=== PATIENT | female | born 1990 | race American Indian/Alaskan Native ===

== ENCOUNTER 2018-11-10 23:52 | Emergency (ER) | payer MEDICAID ==
[2018-11-11 00:18] LABS: Basophils # (Auto) 0.1 K/mm3 (0.0-0.1); Basophils % (Auto) 0.8 % (0.0-1.8); Eosinophils # (Auto) 0.2 K/mm3 (0.0-0.4); Eosinophils % (Auto) 2.7 % (0.0-4.3); Hematocrit 36.7 % (30.3-42.9); Hemoglobin 12.7 gm/dl (10.1-14.3); Lymphocytes # (Auto) 1.8 K/mm3 (1.2-5.4); Mean Corpuscular HGB Conc 35 % (30-34); Mean Corpuscular Volume 93 fl (79-97); Monocytes # (Auto) 0.9 K/mm3 (0.0-0.8); Monocytes % (Auto) 11.9 % (0.0-7.3); Platelet Count 229 K/mm3 (140-440); Red Blood Count 3.95 M/mm3 (3.65-5.03); Red Cell Distribution Width 14.3 % (13.2-15.2)
[2018-11-11 00:43] LABS: Albumin 3.9 g/dL (3.9-5); BUN/Creatinine Ratio 25; Blood Urea Nitrogen 10 mg/dL (7-17); Calcium 8.6 mg/dL (8.4-10.2); Hemolysis Index 120
[2018-11-11 01:32] LABS: Alanine Aminotransferase 15 units/L (7-56)
[2018-11-11 02:27] LABS: Bilirubin,Urine NEG (Negative); Blood,Urine SM (Negative); Color,Urine Yellow (Yellow); Mucus,Urine FEW /HPF; Protein,Urine <15 mg/dL mg/dL (Negative); Urobilinogen,Urine < 2.0 mg/dL (<2.0)
--- NOTE | 2018-11-11 02:31 | Emergency Department Report ---
ED Abdominal Pain HPI - General Chief Complaint: Abdominal Pain Stated Complaint: LOWER ABD PAIN Time Seen by Provider: 11/11/18 01:55 Source: patient Mode of arrival: Ambulatory Limitations: No Limitations - History of Present Illness Initial Comments: Patient is a 28-year-old female presents with suprapubic abdominal cramping that began a few hours ago. She is currently 12 weeks . She denies any nausea, vomiting, diarrhea, fever, urinary symptoms, vaginal bleeding, vaginal discharge. States her last menstrual cycle was August 18. Her COREM[facility] is at [facility] [place] [facility]. The patient states her first . she denies any past medical history or allergies to medications. - Related Data Home Medications Medication Instructions Recorded Confirmed Last Taken No Known Home Medications [No 10/11/15 10/11/15 Unknown Reported Home Medications] Allergies Allergy/AdvReac Type Severity Reaction Status Date / Time No Known Allergies Allergy Verified 11/10/18 23:58 ED Review of Systems ROS: Stated complaint: LOWER ABD PAIN Other details as noted in HPI Comment: All other systems reviewed and negative ED Past Medical Hx - Past Medical History Previous Medical History?: No - Surgical History Past Surgical History?: No - Social History Smoking Status: Never Smoker Substance Use Type: None - Medications Home Medications: Home Medications Medication Instructions Recorded Confirmed Last Taken Type No Known Home Medications [No 10/11/15 10/11/15 Unknown History Reported Home Medications] ED Physical Exam - General Limitations: No Limitations General appearance: alert, in no apparent distress - Head Head exam: Present: atraumatic, normocephalic - Eye Eye exam: Present: normal appearance - ENT ENT exam: Present: mucous membranes moist - Respiratory Respiratory exam: Present: normal lung sounds bilaterally. Absent: respiratory distress, wheezes, rales, rhonchi, stridor, accessory muscle use, decreased breath sounds, prolonged expiratory - Cardiovascular Cardiovascular Exam: Present: regular rate, normal rhythm, normal heart sounds. Absent: systolic murmur, diastolic murmur, rubs, gallop - GI/Abdominal GI/Abdominal exam: Present: soft, normal bowel sounds. Absent: distended, tenderness, guarding, rebound, rigid - Back Exam Back exam: Absent: CVA tenderness (R), CVA tenderness (L) - Neurological Exam Neurological exam: Present: alert, oriented X3 - Psychiatric Psychiatric exam: Present: normal affect, normal mood - Skin Skin exam: Present: warm, dry, intact ED Course Vital Signs 11/10/18 11/11/18 23:56 03:39 Temperature 98.3 F 98.4 F Pulse Rate 124 H 76 Respiratory 22 20 Rate Blood Pressure 129/80 Blood Pressure 105/60 [Left] O2 Sat by Pulse 97 100 Oximetry ED Medical Decision Making - Lab Data Result diagrams: 11/11/18 00:05 11/11/18 00:05 Lab Results 11/11/18 11/11/18 11/11/18 Range/Units 00:05 00:05 00:05 WBC 7.6 (4.5-11.0) K/mm3 RBC 3.95 (3.65-5.03) M/mm3 Hgb 12.7 (10.1-14.3) gm/dl Hct 36.7 (30.3-42.9) % MCV 93 (79-97) fl MCH 32 (28-32) pg MCHC 35 H (30-34) % RDW 14.3 (13.2-15.2) % Plt Count 229 (140-440) K/mm3 Lymph % (Auto) 24.0 (13.4-35.0) % Jenkins % (Auto) 11.9 H (0.0-7.3) % Eos % (Auto) 2.7 (0.0-4.3) % Baso % (Auto) 0.8 (0.0-1.8) % Lymph # 1.8 (1.2-5.4) K/mm3 Jenkins # 0.9 H (0.0-0.8) K/mm3 Eos # 0.2 (0.0-0.4) K/mm3 Baso # 0.1 (0.0-0.1) K/mm3 Seg Neutrophils % 60.6 (40.0-70.0) % Seg Neutrophils # 4.6 (1.8-7.7) K/mm3 Sodium 136 L (137-145) mmol/L Potassium 4.0 (3.6-5.0) mmol/L Chloride 104.7 (98-107) mmol/L Carbon Dioxide 19 L (22-30) mmol/L Anion Gap 16 mmol/L BUN 10 (7-17) mg/dL Creatinine 0.4 L (0.7-1.2) mg/dL Estimated GFR > 60 ml/min BUN/Creatinine Ratio 25 % Glucose 113 H (65-100) mg/dL Calcium 8.6 (8.4-10.2) mg/dL Total Bilirubin 0.30 (0.1-1.2) mg/dL AST 29 (5-40) units/L ALT 15 (7-56) units/L Alkaline Phosphatase 62 (35-129) units/L Total Protein 7.5 (6.3-8.2) g/dL Albumin 3.9 (3.9-5) g/dL Albumin/Globulin Ratio 1.1 % HCG, Quant 76990 H (0-4) mIU/mL Urine Color (Yellow) Urine Turbidity (Clear) Urine pH (5.0-7.0) Ur Specific Elkins (1.003-1.030) Urine Protein (Negative) mg/dL Urine Glucose (UA) (Negative) mg/dL Urine Ketones (Negative) mg/dL Urine Blood (Negative) Urine Nitrite (Negative) Urine Bilirubin (Negative) Urine Urobilinogen (<2.0) mg/dL Ur Leukocyte Esterase (Negative) Urine WBC (Auto) (0.0-6.0) /HPF Urine RBC (Auto) (0.0-6.0) /HPF U Epithel Cells (Auto) (0-13.0) /HPF Urine Mucus /HPF 11/11/18 Range/Units 02:10 WBC (4.5-11.0) K/mm3 RBC (3.65-5.03) M/mm3 Hgb (10.1-14.3) gm/dl Hct (30.3-42.9) % MCV (79-97) fl MCH (28-32) pg MCHC (30-34) % RDW (13.2-15.2) % Plt Count (140-440) K/mm3 Lymph % (Auto) (13.4-35.0) % Jenkins % (Auto) (0.0-7.3) % Eos % (Auto) (0.0-4.3) % Baso % (Auto) (0.0-1.8) % Lymph # (1.2-5.4) K/mm3 Jenkins # (0.0-0.8) K/mm3 Eos # (0.0-0.4) K/mm3 Baso # (0.0-0.1) K/mm3 Seg Neutrophils % (40.0-70.0) % Seg Neutrophils # (1.8-7.7) K/mm3 Sodium (137-145) mmol/L Potassium (3.6-5.0) mmol/L Chloride (98-107) mmol/L Carbon Dioxide (22-30) mmol/L Anion Gap mmol/L BUN (7-17) mg/dL Creatinine (0.7-1.2) mg/dL Estimated GFR ml/min BUN/Creatinine Ratio % Glucose (65-100) mg/dL Calcium (8.4-10.2) mg/dL Total Bilirubin (0.1-1.2) mg/dL AST (5-40) units/L ALT (7-56) units/L Alkaline Phosphatase (35-129) units/L Total Protein (6.3-8.2) g/dL Albumin (3.9-5) g/dL Albumin/Globulin Ratio % HCG, Quant (0-4) mIU/mL Urine Color Yellow (Yellow) Urine Turbidity Clear (Clear) Urine pH 6.0 (5.0-7.0) Ur Specific Elkins 1.017 (1.003-1.030) Urine Protein <15 mg/dl (Negative) mg/dL Urine Glucose (UA) 50 (Negative) mg/dL Urine Ketones Neg (Negative) mg/dL Urine Blood Sm (Negative) Urine Nitrite Neg (Negative) Urine Bilirubin Neg (Negative) Urine Urobilinogen < 2.0 (<2.0) mg/dL Ur Leukocyte Esterase Neg (Negative) Urine WBC (Auto) 1.0 (0.0-6.0) /HPF Urine RBC (Auto) 3.0 (0.0-6.0) /HPF U Epithel Cells (Auto) < 1.0 (0-13.0) /HPF Urine Mucus Few /HPF Vital Signs 11/10/18 11/11/18 23:56 03:39 Temperature 98.3 F 98.4 F Pulse Rate 124 H 76 Respiratory 22 20 Rate Blood Pressure 129/80 Blood Pressure 105/60 [Left] O2 Sat by Pulse 97 100 Oximetry - Radiology Data Radiology results: report reviewed Ultrasound Report Signed Patient: ERICA OLVERA MR#: [id number] : 1990 Acct:[id number] Age/Sex: 28 / F ADM Date: 11/10/18 Loc: ED Attending Dr: Ordering Physician: JENNIE PEREZ Date of Service: 11/11/18 Procedure(s): US OB <= 14 weeks fetus Accession Number(s): [id number] cc: JENNIE PEREZ OB ultrasound FINDINGS: Viable intrauterine is seen with appropriate measurements corresponding to an MA of 12 weeks 4 days for an EDC of 05/22/2019. This correlates with clinical dates. heart rate is 157 bpm. Right ovary is normal. Left ovary contains a 1.1 cm cyst. No free fluid is seen. Cervix measures 3.2 cm and is closed. No abnormality seen. Signer Name: Rachid Alcala MD Signed: 11/11/2018 3:34 AM Workstation Name: [id number] Transcribed By: RISA Dictated By: Rachid Alcala MD Electronically Authenticated By: Rachid Alcala MD Signed Date/Time: 11/11/18 0334 - Medical Decision Making Patient is a 28-year-old female presents with suprapubic abdominal cramping that began a few hours ago. She is currently 12 weeks . She denies any nausea, vomiting, diarrhea, fever, urinary symptoms, vaginal bleeding, vaginal discharge. States her last menstrual cycle was August 18. Her COREMAKER is at [facility] [place] [facility]. The patient states her first . she denies any past medical history or allergies to medications. VSS. no abd tenderness on exam. [place] [address]. UA without evidence of UTI. OB US obtained and shows: Viable intrauterine is seen with appropriate measurements corresponding to an MA of 12 weeks 4 days for an EDC of 05/22/2019. This correlates with clinical dates. heart rate is 157 bpm. Right ovary is normal. Left ovary contains a 1.1 cm cyst. No free fluid is seen. Cervix measures 3.2 cm and is closed. No abnormality seen. advised pt that she may take tylenol for discomfort. continue taking a daily vitamin. follow up with your COREMAKER in the next 2-3 days. return to the emergency room for any new or worsening symptoms. - Differential Diagnosis IUP, miscarriage, placenta accreta/abruption, placenta previa, UTI Critical care attestation.: If time is entered above; I have spent that time in minutes in the direct care of this critically ill patient, excluding procedure time. ED Disposition Clinical Impression: Suprapubic cramping Qualifiers: Weeks of gestation: 12 weeks Qualified Code(s): Z3A.12 - 12 weeks gestation of Disposition: DC-01 TO HOME OR SELFCARE Is pt being admited?: No Does the pt Need Aspirin: No Condition: Stable Instructions: Abdominal Pain in (ED) Additional Instructions: may take tylenol for any discomfort. continue taking a daily vitamin. drink plenty of water. follow up with your COREMAKER in the next 2-3 days. return to the emergency room for any new or worsening symptoms. Referrals: [facility] [Provider Group] - 2-3 Days Time of Disposition: 03:48 Print Language: TURKISH
--- NOTE | 2018-11-11 03:39 | Ultrasound Report ---
OB ultrasound FINDINGS: Viable intrauterine is seen with appropriate measurements corresponding to an MA of 12 weeks 4 days for an EDC of 05/22/2019. This correlates with clinical dates. heart rate is 157 bpm. Right ovary is normal. Left ovary contains a 1.1 cm cyst. No free fluid is seen. Cervix clint ures 3.2 cm and is closed. No abnormality seen. Signer Name: Rachid Alcala MD Signed: 11/11/2018 3:34 AM Workstation Name: [id number]
[2018-11-11 03:40] VITALS: BP 105/60
== END 2018-11-11 05:09 | disposition home or self-care (01) ==
LOC: ED 23:52
DX: O26.891 Other specified pregnancy related conditions, first trimester (principal); R10.30 Lower abdominal pain, unspecified; Z3A.12 12 weeks gestation of pregnancy
CPT/HCPCS: 36415; 76801; 80053; 81001; 84702; 85025